=== PATIENT | female | born 1980 | race African-American/Black ===

== ENCOUNTER 2017-08-22 18:27 | Emergency (ER) | payer MEDICAID ==
[~2017-08-22] VITALS: Ht 177.8 cm; Wt 69.4 kg
[2017-08-22 20:04] LABS: BASOPHILS % (AUTO) 1.2 % (0.0-2.0); EOSINOPHILS % (AUTO) 1.5 % (0.0-3.0); HEMATOCRIT 35.3 % (37.0-47.0); LYMPHOCYTES % (AUTO) 20.3 % (20.0-45.0); MEAN CORPUSCULAR VOLUME 86 FL (80-99); MONOCYTES % (AUTO) 8.5 % (1.0-10.0); NEUTROPHILS % (AUTO) 68.5 % (45.0-75.0); PLATELET COUNT 293 K/UL (150-450); RED BLOOD COUNT 4.08 M/UL (4.20-5.40); WHITE BLOOD COUNT 9.1 K/UL (4.8-10.8)
[2017-08-22 20:05] LABS: APPEARANCE,URINE CLEAR; BILIRUBIN, URINE NEGATIVE (NEGATIVE); COLOR,URINE PALE YELLOW; GLUCOSE, URINE (UA) NEGATIVE (NEGATIVE); KETONES,URINE NEGATIVE (NEGATIVE); LEUKOCYTE ESTERASE ,URINE 2+ (NEGATIVE); NITRITE,URINE NEGATIVE (NEGATIVE); PH,URINE 6.5 (4.5-8.0); PROTEIN,URINE NEGATIVE (NEGATIVE); UROBILINOGEN,URINE NORMAL MG/DL (0.0-1.0)
[2017-08-22 20:15] LABS: ANION GAP 12 mmol/L (5-15); BLOOD UREA NITROGEN 8 mg/dL (7-18); CALCIUM 8.5 MG/DL (8.5-10.1); CARBON DIOXIDE 24 MMOL/L (21-32); CHLORIDE 101 MMOL/L (98-107); CREATININE 0.6 MG/DL (0.55-1.30); POTASSIUM 3.8 MMOL/L (3.5-5.1); SODIUM 137 MMOL/L (136-145)
[2017-08-22 21:15] VITALS: BP 113/65
--- NOTE | 2017-08-22 23:16 | Emergency Room Report ---
History of Present Illness General Chief Complaint: Complications Source: Patient Present Illness Allergies: Coded Allergies: No Known Allergies (Unverified , 08/22/17) Patient History Past Medical History: see triage record Pertinent Family History: none Last Menstrual Period: 6 weeks Now: Yes Reviewed Nursing Documentation: PMH: Agreed, PSxH: Agreed Nursing Documentation-PM Past Medical History: No Stated History Physical Exam Vital Signs Date Time Temp Pulse Resp B/P (MAP) Pulse Ox O2 Delivery O2 Flow Rate FiO2 08/22/17 18:33 97.7 86 18 113/65 99 Room Air Medical Decision Making PA Attestation Dr. Bragg is my supervising physician. Patient management was discussed with my supervising physician Diagnostic Impression: Primary Impression: Threatened ER Course Differential diagnoses considered include but not limited to Early , threatened , incomplete , complete , ectopic , hemorrhagic cyst Beta-hCG is at a level which should be visible if is viable. There is none seen. No gestational sac. The patient was informed this is likely either a threatened , inevitable , or a complete . She will follow up with her OB doctor and will need further evaluation. ER precautions are given CT/MRI/US Diagnostic Results CT/MRI/US Diagnostic Results : Imaging Test Ordered: OB US Impression No intrauterine gestational sac or pole visualized. Adnexa not visualized. Free fluid noted in the pelvis. Differential considerations include ectopic , nonviable , early , . Recommend follow-up with short-term interval repeat hCG and ultrasound until diagnosis made. Last Vital Signs Date Time Temp Pulse Resp B/P (MAP) Pulse Ox O2 Delivery O2 Flow Rate FiO2 08/22/17 21:15 97.7 18 113/65 99 Room Air 08/22/17 18:33 86 Status: improved Disposition: HOME, SELF-CARE Condition: Improved Patient Instructions: Threatened Miscarriage Additional Instructions: I discussed my findings with the patient. All questions and concerns have been answered. Treatment and medication compliance have been addressed. Return to ED if symptoms worsen, new symptoms arise, or if needed for any reason. Patient verbalized understanding of discharge instructions. I informed the patient that she needs to have repeat blood work done in 48 hours. Please see your OB doctor as soon as possible Return to emergency Department if you notice continued or increased abdominal pain, fever, or any other reason GOPAL GILLETTE Aug 22, 2017 23:16
--- NOTE | 2017-08-25 11:13 | Diagnostic Imaging Report ---
Indication: Bleeding during . Beta- hCG 21,920. LMP 07/08/2017 Technique: Grayscale and duplex Doppler imaging of the pelvis performed utilizing a transabdominal scan and endovaginal scan. Comparison: None Findings: Please note that scan was obtained 08/22/2017, 20:25 however the study was not pushed/verified in the PACS bartender server by the weekend glass installer technician. It was matched/verified the morning of 08/25/17. There is no intrauterine gestational sac or pole visualized. Fluid is noted within the pelvis. The bilateral ovaries are not visualized. Multiple peristalsing bowel loops are seen. Impression: No intrauterine gestational sac or pole visualized. Adnexa not visualized. Free fluid noted in the pelvis. Differential considerations include ectopic , nonviable , early , . Recommend follow-up with short-term interval repeat hCG and ultrasound until diagnosis made. Findings discussed with Dr. Fletcher of the ED 10:59 AM 08/25/17.
== END 2017-08-22 21:16 | disposition home or self-care (01) ==
LOC: EMR 19:16
DX: O20.0 Threatened abortion (principal); R10.9 Unspecified abdominal pain; O26.851 Spotting complicating pregnancy, first trimester; Z3A.01 Less than 8 weeks gestation of pregnancy
CPT/HCPCS: 36415; 76801; 76830; 80048; 81003; 84702; 85025; 99282